=== PATIENT | female | born 1965 | race Two or more races ===

== ENCOUNTER → 2017-07-09 | Outpatient (CLI) | payer OTHER | END | disposition home or self-care (01) | LOC: NUCLEAR 14:00 | DX: I87.2 Venous insufficiency (chronic) (peripheral) (principal); I72.6 Aneurysm of vertebral artery; M81.0 Age-related osteoporosis without current pathological fracture ==

== ENCOUNTER 2017-10-23 11:53 | Outpatient (CLI) | payer OTHER | END 2017-10-23 12:42 | disposition home or self-care (01) | LOC: RAD 11:53 | DX: K61.0 Anal abscess (principal); K60.3 Anal fistula ==

== ENCOUNTER 2017-10-23 12:13 | Outpatient (CLI) | payer OTHER | END 2017-10-23 12:14 | disposition home or self-care (01) | LOC: LAB 12:13 | DX: K61.0 Anal abscess (principal); K60.3 Anal fistula ==

== ENCOUNTER 2017-10-30 07:08 | Day surgery (SDC) | payer OTHER ==
[2017-10-30] MEDS ORDERED: ULTRACET PO (10:40)
[2017-10-30] MEDS ORDERED: RECTICARE30 GM TOP (10:41)
== END 2017-10-30 17:30 | disposition home or self-care (01) ==
LOC: CIR.AMB 07:08
DX: K60.3 Anal fistula (principal)

== ENCOUNTER → 2019-05-07 | Outpatient (CLI) | payer OTHER ==
[~2019-05-07] MED LIST: RECTICARE30 GM TOP; ULTRACET PO
== END | disposition home or self-care (01) ==
LOC: RAD 12:55
DX: S82.91XA Unspecified fracture of right lower leg, initial encounter for closed fracture (principal)

== ENCOUNTER → 2020-08-10 | Outpatient (CLI) | payer OTHER | END | disposition home or self-care (01) | LOC: RAD 07:40 | PROVIDERS: ATTEND Pediatrics Pediatric Gastroenterology | DX: S42.001A Fracture of unspecified part of right clavicle, initial encounter for closed fracture (principal) ==

== ENCOUNTER 2020-08-17 07:16 | Outpatient (CLI) | payer OTHER | END 2020-08-17 07:31 | disposition home or self-care (01) | LOC: TOM 07:16 | PROVIDERS: ATTEND Pediatrics Pediatric Gastroenterology | DX: R51.0 Headache with orthostatic component, not elsewhere classified (principal); G93.89 Other specified disorders of brain ==

== ENCOUNTER 2020-09-02 08:16 | Outpatient (CLI) | payer OTHER | END 2020-09-02 08:28 | disposition home or self-care (01) | LOC: RAD 08:16 | DX: M51.36 Other intervertebral disc degeneration, lumbar region (principal); M79.671 Pain in right foot; M79.672 Pain in left foot ==

== ENCOUNTER 2022-06-06 07:17 | Outpatient (CLI) | payer OTHER | END 2022-06-06 07:18 | disposition home or self-care (01) | LOC: NUCLEAR 07:17 | PROVIDERS: ATTEND Pediatrics Pediatric Gastroenterology | DX: K31.84 Gastroparesis (principal); R13.10 Dysphagia, unspecified; E11.65 Type 2 diabetes mellitus with hyperglycemia | CPT/HCPCS: 78264; A9541 ==

== ENCOUNTER 2022-10-11 12:18 | Outpatient (CLI) | payer OTHER | END 2022-10-11 12:32 | disposition home or self-care (01) | LOC: MAMO-SONO 12:18 | PROVIDERS: ATTEND Obstetrics & Gynecology | DX: R10.2 Pelvic and perineal pain (principal); R10.30 Lower abdominal pain, unspecified; N63.0 Unspecified lump in unspecified breast; N64.4 Mastodynia; Z12.31 Encounter for screening mammogram for malignant neoplasm of breast ==

== ENCOUNTER 2022-10-11 12:57 | Outpatient (CLI) | payer OTHER | END 2022-10-11 13:01 | disposition home or self-care (01) | LOC: NUCLEAR 12:57 | PROVIDERS: ATTEND Obstetrics & Gynecology | DX: M81.0 Age-related osteoporosis without current pathological fracture (principal) ==

== ENCOUNTER 2022-10-26 09:44 | Outpatient (CLI) | payer OTHER | END 2022-10-26 09:56 | disposition home or self-care (01) | LOC: RAD 09:44 | PROVIDERS: ATTEND Obstetrics & Gynecology | DX: R06.02 Shortness of breath (principal) ==

== ENCOUNTER 2022-11-08 09:56 | Outpatient (CLI) | payer OTHER | END 2022-11-08 10:04 | disposition home or self-care (01) | LOC: SONOGRAMA 09:56 | PROVIDERS: ATTEND Physical Medicine & Rehabilitation | DX: K76.0 Fatty (change of) liver, not elsewhere classified (principal) ==

== ENCOUNTER 2023-06-09 07:43 | Outpatient (CLI) | payer OTHER | END 2023-06-09 07:52 | disposition home or self-care (01) | LOC: SONOGRAMA 07:43 | PROVIDERS: ATTEND Pediatrics Pediatric Gastroenterology | DX: R10.9 Unspecified abdominal pain (principal) ==

== ENCOUNTER 2023-11-03 07:23 | Outpatient (CLI) | payer OTHER | END 2023-11-03 07:35 | disposition home or self-care (01) | LOC: MAMO-SONO 07:23 | PROVIDERS: ATTEND Internal Medicine | DX: N60.21 Fibroadenosis of right breast (principal); N60.22 Fibroadenosis of left breast; K21.00 Gastro-esophageal reflux disease with esophagitis, without bleeding; Q40.1 Congenital hiatus hernia; M15.0 Primary generalized (osteo)arthritis; M41.9 Scoliosis, unspecified; M51.37 Other intervertebral disc degeneration, lumbosacral region; M85.89 Other specified disorders of bone density and structure, multiple sites; E55.9 Vitamin D deficiency, unspecified; I49.3 Ventricular premature depolarization; I70.0 Atherosclerosis of aorta; E11.9 Type 2 diabetes mellitus without complications; K22.89 Other specified disease of esophagus; K86.89 Other specified diseases of pancreas ==

== ENCOUNTER 2023-11-03 09:04 | Outpatient (CLI) | payer OTHER | END 2023-11-03 09:05 | disposition home or self-care (01) | LOC: NUCLEAR 09:04 | PROVIDERS: ATTEND Internal Medicine | DX: I70.213 Atherosclerosis of native arteries of extremities with intermittent claudication, bilateral legs (principal) ==

== ENCOUNTER 2023-11-04 09:06 | Outpatient (CLI) | payer OTHER | END 2023-11-04 09:07 | disposition home or self-care (01) | LOC: NUCLEAR 09:06 | PROVIDERS: ATTEND Internal Medicine | DX: I70.208 Unspecified atherosclerosis of native arteries of extremities, other extremity (principal) ==

== ENCOUNTER 2023-11-05 08:54 | Outpatient (CLI) | payer OTHER | END 2023-11-05 08:58 | disposition home or self-care (01) | LOC: NUCLEAR 08:54 | PROVIDERS: ATTEND Internal Medicine | DX: I87.2 Venous insufficiency (chronic) (peripheral) (principal) ==

== ENCOUNTER 2023-11-10 10:48 | Outpatient (CLI) | payer OTHER | END 2023-11-10 10:49 | disposition home or self-care (01) | LOC: NUCLEAR 10:48 | PROVIDERS: ATTEND Internal Medicine | DX: I83.893 Varicose veins of bilateral lower extremities with other complications (principal); I87.2 Venous insufficiency (chronic) (peripheral) ==

== ENCOUNTER 2024-01-28 07:32 | Outpatient (CLI) | payer OTHER | END 2024-01-28 07:45 | disposition home or self-care (01) | LOC: SONOGRAMA 07:32 | PROVIDERS: ATTEND Internal Medicine | DX: I49.3 Ventricular premature depolarization (principal); I10 Essential (primary) hypertension; I70.0 Atherosclerosis of aorta; I87.2 Venous insufficiency (chronic) (peripheral); E11.9 Type 2 diabetes mellitus without complications; K22.89 Other specified disease of esophagus; K86.89 Other specified diseases of pancreas; K21.00 Gastro-esophageal reflux disease with esophagitis, without bleeding; Q40.1 Congenital hiatus hernia; N60.21 Fibroadenosis of right breast; N60.22 Fibroadenosis of left breast; M15.0 Primary generalized (osteo)arthritis; M41.9 Scoliosis, unspecified; M51.37 Other intervertebral disc degeneration, lumbosacral region; M85.89 Other specified disorders of bone density and structure, multiple sites; N18.30 Chronic kidney disease, stage 3 unspecified; E55.9 Vitamin D deficiency, unspecified ==